=== PATIENT | female | born 1990 | race Asian ===

== ENCOUNTER 2017-06-24 19:35 | Emergency (ER) | payer OTHER ==
[~2017-06-24] VITALS: Ht 165.1 cm; Wt 60.8 kg
[2017-06-24 19:44] VITALS: BP_SYST 118
--- NOTE | 2017-06-24 19:56 | NUR ---
Patient to ER bed 7 to gown for evaluation. Side rails up.
--- NOTE | 2017-06-24 20:00 | NUR ---
Pt in bed 7 with c/o UTI symptoms , Luz Huang METROLOGY SPECIALIST aware.
[2017-06-24 20:03] LABS: BILIRUBIN,URINE NEGATIVE (NEGATIVE); BLOOD, URINE 3+ (NEGATIVE); CLARITY/URINE HAZY (CLEAR); COLOR,URINE YELLOW (YELLOW); GLUCOSE,URINE NEGATIVE (NEGATIVE); KETONES,URINE 1+ (NEGATIVE); NITRITE, URINE POSITIVE (NEGATIVE); PROTEIN URINE 2+ (NEGATIVE); UROBILINOGEN,URINE 0.2 (0.2-1.0)
--- NOTE | 2017-06-24 20:05 | NUR ---
AMADO Huang CLEANING TEAM MEMBER at bedside examining patient.
[2017-06-24 20:11] LABS: LEUKOCYTE ESTERASE ,URINE 2+ (NEGATIVE)
[2017-06-24 20:12] LABS: BACTERIA,URINE MODERATE /HPF (None Seen); RBC,URINE 50-80 /HPF (0-3); WBC,URINE 20-50 /HPF (0-3)
[2017-06-24 20:13] LABS: MUCUS,URINE None Seen /LPF (None Seen)
[2017-06-24] MEDS ORDERED: PHENAZOPYRIDINE HCL 100 MG TABLET PO ONE (20:15)
[2017-06-24] MEDS ORDERED: IBUPROFEN 800 MG TABLET PO ONE (20:15)
[2017-06-24] MEDS ORDERED: CIPROFLOXACIN HCL 500 MG TABLET PO ONE (20:15)
--- NOTE | 2017-06-24 20:35 | NUR ---
Patient given written and verbal discharge instructions and verbalizes understanding. ER MD discussed with patient the results and treatment provided. Patient in stable condition. ID arm band removed. Rx of cipro, pyridium given. Patient educated on pain management and to follow up with PMD. Pain Scale 0/10. Opportunity for questions provided and answered. Medication side effect fact sheet provided.
[2017-06-24 20:37] VITALS: BP_SYST 117
== END 2017-06-24 20:37 | disposition home or self-care (01) ==
LOC: SED 19:35
DX: N39.0 Urinary tract infection, site not specified (principal); R19.7 Diarrhea, unspecified
CPT/HCPCS: 81000-TC; 81025; 87086; 87186-TC; 99284